=== PATIENT | male | born 1955 | race Native Hawaiian/Other Pacific Islander ===

== ENCOUNTER 2018-10-29 12:02 | Outpatient (CLI) | payer OTHER | END 2018-10-29 20:14 | disposition home or self-care (01) | LOC: RAD 12:02 | DX: M25.551 Pain in right hip (principal) ==

== ENCOUNTER 2022-02-15 10:30 | Outpatient (CLI) | payer BC | END 2022-02-15 19:00 | disposition home or self-care (01) | LOC: RAD 10:30 | PROVIDERS: ATTEND Nurse Practitioner Family | DX: M25.561 Pain in right knee (principal) ==